=== PATIENT | female | born 1950 | race Caucasian/White ===

== ENCOUNTER → 2020-07-08 12:52 | Outpatient (BNVA) | payer MEDICARE, OTHER, SELFPAY | PROVIDERS: Visit Provider Orthopaedic Surgery | DX: M19.041 Primary osteoarthritis, right hand (principal); M19.042 Primary osteoarthritis, left hand; M67.441 Ganglion, right hand | CPT/HCPCS: 99202; J1020 ==

== ENCOUNTER 2020-11-02 09:59 | Outpatient (REF) | payer MEDICARE, OTHER, SELFPAY | END 2020-11-02 10:00 | disposition home or self-care (01) | LOC: HO.HOSX 09:59 | PROVIDERS: Visit Provider Orthopaedic Surgery | DX: Z13.89 Encounter for screening for other disorder (principal) ==

== ENCOUNTER 2020-11-02 11:33 | Outpatient (REF) | payer MEDICARE, OTHER, SELFPAY ==
--- NOTE | ~2020-11-02 | XR_ITS ---
EXAMINATION: XR HAND, RIGHT CLINICAL INFORMATION: Pain. COMPARISON: None TECHNIQUE: PA, lateral, and oblique views of the right hand. FINDINGS: Bone alignment is normal. No acute fracture or dislocation is seen. There is a well-corticated ossification adjacent to the ulnar styloid questionable for ununited accessory ossification center versus old trauma. 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 Soft tissues are unremarkable. XR/XR hand RT min 3V IMPRESSION: Arthritis.
== END 2020-11-02 11:34 | disposition home or self-care (01) ==
LOC: HO.XRAY 11:33
PROVIDERS: PCP Internal Medicine; Visit Provider Orthopaedic Surgery
DX: M79.641 Pain in right hand (principal); M19.041 Primary osteoarthritis, right hand; M19.042 Primary osteoarthritis, left hand; M67.441 Ganglion, right hand
CPT/HCPCS: 73130; 99212